=== PATIENT | male | born 1980 | race Caucasian/White ===

== ENCOUNTER 2025-05-24 08:54 | Emergency (ER) | payer MEDICAID, SELFPAY ==
--- NOTE | 2025-05-24 09:00 | PC.NURSE ---
DR CHAVARRIA AT BEDSIDE
[2025-05-24 09:04] VITALS: BP 120/87; PULSE 68; RESP 14; TEMP 36.5; O2SAT 97; BMI 28.4
--- NOTE | 2025-05-24 09:06 | HMH.EDGENADL ---
Discharge Plan Disposition Patient Disposition: Home, Self-Care Condition: Good Prescriptions Prescriptions: New amoxicillin-pot clavulanate 875-125 mg tablet 1 tab PO BID 7 Days Qty: 14 0RF Referrals Follow up/Referrals: Provider,Referral, [Primary Care Provider, Medical] - See instructions Activity Restrictions/Add. Instructions Additional Instructions/Restrictions: Keep the wound clean by using gentle soap and water. Do not scrub as this can make the sutures pop out. Sutures are absorbable and will dissolve on their own over time. If you develop any signs of infection, such as redness to the area, swelling, pus draining from the wound or fever, return to the emergency department for evaluation. You are being prescribed a 7-day course of Augmentin to help prevent infection. Take this as prescribed. The small laceration to the right cheek should heal well on its own. Keep this wound clean as well. You can take Tylenol and ibuprofen to help with pain. Clinical Impressions Clinical Impression: Dog bite of face, Laceration of lip, Laceration of cheek, right Instructions Patient Instructions: DI for Laceration Repair Print Language Print Language: Northern Irish Discharge ED Provider: Sohan Garber General Adult HPI General Chief complaint: Wound/Laceration Stated complaint: Dog bite 05/24 0800 Time Seen by Provider: 05/24/25 08:58 Mode of Arrival: Ambulatory Source of Information: Patient Limitations: No Limitations History of Present Illness HPI narrative: Rohit Tejeda is a 44y male with no significant past medical history who presents to the emergency department for complaints of a dog bite to his face. Patient states that this morning, he woke up and his dog was sleeping in bed with him and he believes that he startled him as his face was next to his dog's face. He states that the dog then snapped at his face 1 time and cut him on the cheek and lip with his teeth. Patient states that the cut to his lip was on the outside and does not believe it goes all the way through. He states that this was a one-time event. He states that the dog's vaccines are up-to-date. Patient states that his tetanus shot is up-to-date within the last 2 years. He has no other complaints or concerns at this time. Related Data Previous Rx's ?Medication ?Instructions ?Recorded amoxicillin 875 mg-potassium 1 tab PO BID 7 days #14 tabs 05/24/25 clavulanate 125 mg tablet Allergies Allergy/AdvReac Type Severity Reaction Status Date / Time No Known Allergies Allergy Verified 05/24/25 09:16 [facility] Disclaimer: The information contained in this section may have been updated after the patient was seen, as this information can be updated by other users. Social History Smoking Status: Never smoker alcohol intake: never current occupational status: employed Travel in the last 8 weeks?: None ROS Obtained: Yes Systems reviewed as appropriate & no additional complaints except as documented Physical Exam General General appearance: alert and in no apparent distress Head Head exam: atraumatic Expanded Head Exam Head image:  1. Small, well-approximated laceration over the right cheek Eye Eye exam: Present normal appearance ENT ENT exam: Present normal external ear exam and other Expanded ENT Exam Nose/Mouth Image:  1. 2 cm laceration to the right lip that crosses the vermilion border but approximates well and does not track into the oral cavity Neck Neck exam: Present full ROM Chest Chest inspection: Present symmetric chest wall rise Respiratory Respiratory exam: Present normal lung sounds bilaterally; Absent respiratory distress Cardiovascular Cardiovascular exam: Present regular rate and normal rhythm Abdominal Exam Abdominal exam: Present soft; Absent tenderness or guarding exam: Present deferred Extremities Exam Extremities exam: Present normal inspection Back Exam Back exam: Present normal inspection Neurological Exam Neurological exam: Present alert and oriented X3 Psychiatric Psychiatric exam: Present normal affect Skin Skin exam: Present warm and dry Medical Decision Making Medical Records Screening: Per USPSTF and CDC recommendations, given the prevalence of disease in our region, it is our hospital?s policy to screen for HIV and viral Hepatitis for all patients aged 18 and over and those with ongoing risk factors. Melvin Inquiry Pt receiving controlled substance: No Vital Signs: 05/24/25 09:04 05/24/25 09:18 05/24/25 10:02 Temperature 97.7 F 98.4 F Temperature Source Oral Oral Pulse Rate 76 68 Pulse Rate [Left] 68 Respiratory Rate 14 14 Blood Pressure 112/61 112/78 Blood Pressure [Right Arm] 120/87 Blood Pressure Mean [Right Arm] 98 Blood Pressure Source Automatic Cuff Blood Pressure Source [Right Arm] Automatic Cuff Blood Pressure Position Sitting 02 Sat by Pulse Oximetry 97 74 L Oxygen Delivery Method Room Air Room Air Orders (Tests/Meds): ED MEDICATIONS Discontinued Medications Generic Name Dose Route Start Last Admin Trade Name Jeannine PRN Reason Stop Dose Admin Amoxicillin/Clavulanate Potassium 1 each 05/24/25 09:02 05/24/25 09:18 Amoxicillin/Clavulanate Potassium 875/125mg Tablet PO 05/24/25 09:03 1 each ONCE ONE Administration Cocaine HCl 1 ml 05/24/25 09:02 05/24/25 09:17 Cocaine 4% Topical Soln 4ml Bottle TP 05/24/25 09:03 1 ml ONCE ONE Administration Epinephrine HCl 1 mg 05/24/25 09:02 05/24/25 09:17 Epinephrine 1 Mg/Ml Ampul TP 05/24/25 09:03 1 mg ONCE ONE Administration Lidocaine HCl 1 ml 05/24/25 09:02 05/24/25 09:18 Lidocaine 2% Urojet 10ml TP 05/24/25 09:03 1 ml ONCE ONE Administration Medical Decision Narrative: Rohit Tejeda is a 44y male with no significant past medical history who presents to the emergency department for complaints of a dog bite to his face. Patient states that this morning, he woke up and his dog was sleeping in bed with him and he believes that he startled him as his face was next to his dog's face. He states that the dog then snapped at his face 1 time and cut him on the cheek and lip with his teeth. Patient states that the cut to his lip was on the outside and does not believe it goes all the way through. He states that this was a one-time event. He states that the dog's vaccines are up-to-date. Patient states that his tetanus shot is up-to-date within the last 2 years. He has no other complaints or concerns at this time. On arrival, patient is hemodynamically stable, no acute respiratory distress, breathing carefully on room air, GCS 15. He has a 2 cm laceration over the right lower lip involving the vermilion border but does not appear to involve the oral cavity. He has a small laceration over the right cheek that is very superficial and approximates well. No other injuries are noted. Patient notes that his dog is up-to-date on vaccines, so no rabies prophylaxis is indicated at this time and no tetanus shot is indicated as patient's tetanus is currently up-to-date. Will give patient a dose of Augmentin here and plan for 7-day course on discharge. Patient was given topical lidocaine and lip laceration was repaired using 5-0 fast-absorbing sutures with good approximation of the lip and vermilion border. See procedure note for details. Patient tolerated this well. Patient was given instructions to follow-up if there is any evidence of infection and to take Tylenol and ibuprofen to help with pain. All questions were answered. He demonstrated understanding and was in agreement this plan. He remained hemodynamically stable throughout his entire ED visit and was appropriate for discharge at this time. Procedures Laceration Laceration 1: Site: lip Side (If applicable): right Size (cm): 2 Description: linear Depth: simple, single layer Local Anesthetic: other anesthetic (Topical lidocaine) Pre-repair: irrigated extensively Skin layer closed with: other (Fast gut) Size (cm): 5-0 Number of sutures: 2 Technique: simple, interrupted Critical Care Critical Care Time Critical Care Time: No
[2025-05-24] MEDS: COCAINE 4% TOPICAL SOLN 4ML BOTTLE 1 ML TP (09:17)
[2025-05-24 09:18] VITALS: BP 112/61; PULSE 76; O2SAT 97
[2025-05-24] MEDS: LIDOCAINE 2% UROJET 10ML TP (09:18)
[2025-05-24] MEDS: AMOXICILLIN/CLAVULANATE POTASSIUM 875/125MG TABLET 1 EACH PO (09:18)
--- OUTSIDE RECORDS SUMMARY | 2025-05-24 09:34 | XMS_ITS | Clinical Summary ---
Author Organization Healthcare Address [address] [place] [address] Care Team Providers Care Office Technologist Name Role Phone Pcp, No Primary Care Provider Unavailabl e Allergies No known active allergies Medications EPINEPHrine (EpiPen 2-Girish) 0.3 MG/0.3ML injection syringe Inject 0.3 mL (0.3 mg total) as directed if needed for anaphylaxis (allergic reation). Inject into upper leg. Call 911 after use. 1 each 3 Active Active Problems No known active problems Family History Medical History Relation Name Comments Hypertension Father Hypertension Mother Uterine cancer Mother Relation Name Status Comments Father Mother Social History Tobacco Use Types Packs/Day Years Used Date Smoking Tobacco: Never Alcohol Use Standard Drinks/Week Comments Yes 0 (1 standard drink = 0.6 oz pure alcohol) Alcoholic Drinks/day: Consumes alcohol occasionally Sex and Gender Information Value Date Recorded Sex Assigned at Not on file Legal Sex Male 7:45 PM EDT Gender Identity Not on file Sexual Orientation Not on file Last Filed Vital Signs Vital Sign Reading Time Taken Comments Blood Pressure 119/85 11/07/2022 2:14 PM EST Pulse 85 11/07/2022 2:14 PM EST Temperature 36.7 C (98 F) 11/07/2022 10:07 AM EST Respiratory Rate 18 11/07/2022 2:14 PM EST Oxygen Saturation 98% 11/07/2022 2:14 PM EST Inhaled Oxygen Concentration - - Weight 107 kg (235 lb) 11/07/2022 10:07 AM EST Height 193 cm (6' 4 ) 11/07/2022 10:07 AM EST Body Mass Index 28.61 11/07/2022 10:07 AM EST Plan of Treatment Health Maintenance Due Date Last Done Comments [facility]-Depression Screening 1979 [facility]-Infant/Child/Adol SDOH Screenings 1979 [facility]-Obesity Intervention 1985 HPV Vaccines (1 - Male 3-dos e series) 1994 [facility]- SDOH Screenings 1997 [facility]-Adult SDOH Screenings 1997 [facility]-DTaP,Tdap,and Td Vaccine s (1 - Tdap) 1998 [facility]-Hepatitis B Vaccines (2 of 3 - 19+ 3-dose series) 01/10/2005 12/13/2004 [id number] Vaccine (1 - season) 2024 CT Colonography 2024 Colonoscopy 2024 FIT-DNA 2024 FIT 2024 FOBT 2024 Sigmoidoscopy 2024 [facility]-Colorectal Cancer Screening 2024 [facility]-Influenza Vaccine (#1) 2025 [facility]-Zoster Vaccines (1 of 2) 2029 [facility]-HIV Screening Completed 06/09/2022 [facility]-Hepatitis C Screening Completed 2021, 06/28/2021 [facility]-HIB Vaccines Aged Out No longer e ligible based on patient's age to complete this topic [facility]-Hepatitis A Vaccines Aged Out No longer eligible based on patient's age to complete this topic [facility]-IPV Vaccines Aged Out No longer e ligible based on patient's age to complete this topic [facility]-Pneumococcal Vaccine: Pediatrics (0 to 5 Years) and At-Risk Patients (6 to 49 Years) Aged Out No longer eligible b ased on patient's age to complete this topic [facility]-Rotavirus Vaccines Aged Out No lo nger eligible based on patient's age to complete this topic Procedures Procedure Name Priority Date/Time Associated Diagnosis Comments HEPATITIS C ANTIBODY - ED W/REFLEX TO HCV QUANT PCR STAT 06/09/2022 10:19 PM EDT HIV 1/2 ANTIBODY/ANTIGEN SCREEN WITH REFLEX TO HIV I/II DIFFERENTIATION STAT 06/09/2022 10:03 PM EDT from Last 3 Months or Most Recently Relevant to Health Maintenance Results * Hepatitis C Antibody - ED (06/09/2022 10:19 PM EDT) Hepatitis C Antibody Negative Negative 06/10/2022 12:14 AM EDT [facility] Blood Venous blood specimen / Unknown Venipuncture / Unknown 06/09/2022 10:19 PM EDT 06/09/2022 10:53 PM EDT us Gage Yates MD LAB BLOOD ORDERABLES Final Resu lt Performing Organization Address City/[facility] Co de Phone Number [facility] [address] [place] [address] * HIV 1 & 2 Antibody/Antigen Screen (06/09/2022 10:03 PM EDT) HIV 1 & 2 Antibody/Anti gen Screen Nonreactive Nonreactive 06/10/2022 12:13 AM EDT [facility]ALTH[facility]ARE [facility] Blood Venous blood specimen / Unknown Venipuncture / Unknown 06/09/2022 10:03 PM EDT 06/09/2022 10:53 PM EDT us Gage Yates MD LAB BLOOD ORDERABLES Final Resu lt [facility] [address] [place] [address] from Last 3 Months or Most Recently Relevant to Health Maintenance Care Teams Office Technologist Relationship Specialty Start Date End Date Pcp, Patricia [address] [place] [address] PCP - General Family Medicine 06/09/22
--- OUTSIDE RECORDS SUMMARY | 2025-05-24 09:34 | XMS_ITS | Clinical Summary ---
Author Organization [facility] Address [address] [place] [address] Care Team Providers Care Resawyer Name Role Phone Dagoberto Mcmullen MD Primary Care Provider [phone] Allergies No known active allergies Medications EPINEPHrine (EPIPEN) 0.3 MG/0.3ML solution auto-injector injection 0.3 mL. 11/07/2022 Active famotidine (Pepcid) 40 MG tablet Take 1 tablet by mouth Daily. 30 tablet 3 09/16/2023 Active Linzess 145 MCG capsule capsule 02/11/2024 Act brian metoclopramide (Reglan) 10 MG tabletIndicatio ns:Gastroparesi s 1 PO QHS 30 tablet 2 02/19/2024 Active omeprazole (priLOSEC) 40 MG capsuleIndicati ons:Dyspepsia Take 1 capsule by mouth 2 (Two) Times a Day. 60 capsule 5 02/19/2024 Active Active Problems Problem Noted Date Diagnosed Date GERD (gastroesophageal reflux disease) Generalized anxiety disorder 11/09/2020 Resolved Problems Problem Noted Date Diagnosed Date Resolved Date Upper respiratory tract infection 12/14/2022 02/19/2024 Immunizations Immunization Administration Dates Next Due Hepatitis B Adult/Adolescent IM 12/13/2004 Family History Medical History Relation Name Comments Arthritis Father Colon polyps Father Hypertension Father Hypertension Mother Relation Name Status Comments Father Alive Mother Alive Social History Tobacco Use Types Packs/Day Years Used Date Smoking Tobacco: Never Smokeless Tobacco: Never Tobacco Cessation:Counseling Given: Not Answered Alcohol Use Standard Drinks/Week Comments Yes 0 (1 standard drink = 0.6 oz pur e alcohol) couple a night PHQ-2 Answer Date Recorded Retired PHQ-9: Brief Depression Severity Measure Score 0 02/18/2023 Abuse Screen Answer Date Recorded Unsafe at Home or Work/School Not on file Feels Threatened by Someone? Not on file 07/2023 Does Anyone Keep You from Co ntacting Others or Doint Things Outside the Home? Not on file 08/12/2023 Physical Sign of Abuse Present Not on file 1 Housing Stability Answer Date Recorded Current Living Arrangements Not on file 07/2023 Potentially Unsafe Housing Conditions Not on gareth e 08/12/2023 Family and Community Support Answer Imguel e Recorded Help with Day-to-Day Activities Not on file 08/12/2023 Lonely or Isolated Not on file 08/12/2023 Employment Answer Date Recorded Do you want help finding or keeping work or a arin b? Not on file 08/12/2023 Disabilities Answer Date Recorded Concentrating, Remembering, or Making Decisions Difficulty Not on file 08/12/2023 Doing Errands Independently Difficulty Not on fi le 08/12/2023 Education Answer Date Recorded Help with school or training? 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, construction Not on file Not on file No t on file Last Filed Vital Signs Vital Sign Reading Time Taken Comments Blood Pressure 124/76 02/19/2024 12:12 PM EDT Pulse 78 02/19/2024 12:12 PM EDT Temperature 36.5 C (97.7 F) 02/19/2024 12:12 PM EDT Respiratory Rate 16 02/19/2024 12:12 PM EDT Oxygen Saturation 93% 02/19/2024 12:12 PM EDT Inhaled Oxygen Concentration - - Weight 114 kg (251 lb) 02/19/2024 12:12 PM EDT Height 195.6 cm (6' 5 ) 02/19/2024 12:12 PM EDT Body Mass Index 29.76 02/19/2024 12:12 PM EDT Plan of Treatment Health Maintenance Due Date Last Done Comments TDAP/TD VACCINES (1 - Tdap) 1998 ANNUAL PHYSICAL 11/13/2020 11/13/2019 COVID-19 Vaccine ( - 2023-2 5 season) 2024 COLOGUARD 2024 COLON CANCER SCREENING 5 YEA R SIGMOIDOSCOPY 2024 COLONOSCOPY 2024 [address]AL CANCER SCREENING [address] COLONOGRAPHY 2024 FECAL OCCULT BLOOD TEST 2024 FIT Testing (1 year) 2024 INFLUENZA VACCINE 08/04/2025 HEPATITIS C SCREENING Completed 06/09/2022 , 06/28/2021 Pneumococcal Vaccine 0-49 Aged Out No longer eligible based on patient's age to complete this topic Procedures Procedure Name Priority Date/Time Associated Diagnosis Comments HEPATITIS C ANTIBODY Routine 06/28/2021 12:40 PM EDT Encounter for hepatitis C screening test for low risk patient from Last 3 Months or Most Recently Relevant to Health Maintenance Results * Hepatitis C Antibody (06/28/2021 12:40 PM EDT) Hep C Virus Ab <0.1 0.0 - 0.9 s/co ratio [facility] Comment: Negative: < 0.8 Indeterminate: 0.8 - 0.9 Positive: > 0.9 The CDC recommends that a positive HCV antibody result be followed up with a HCV Nucleic Acid Amplification test (394404). Blood 06/28/2021 12:4 0 PM EDT 06/28/2021 Narrative [facility] ([facility]) - 06/29/2021 10:36 AM EDT Performed at: 01 - [address] [id number] [employer] Repairer: Victor Manuel Martin PhD, Phone: [phone] Patient Fasting: N us Dagoberto Mcmullen MD LAB BLOOD ORDERABLES Final Resu lt [facility] ([facility]) [address] [place] [address], [place] [phone] [facility] [address] [place] [address], from Last 3 Months or Most Recently Relevant to Health Maintenance Care Teams Resawyer Relationship Specialty Start Date End Date Dagoberto Mcmullen MD [address] [place] [address] PCP - General Family Medicine 11/13/19
--- OUTSIDE RECORDS SUMMARY | 2025-05-24 09:34 | XMS_ITS | Data Portability ---
Author Organization [place] - [place] - [facility] BETY ADMIN Address [address] [place] [id number] Assessment Encounter Date Assessment Date Assessment LastModified by Organization Details LastModified Time 07/03/2023 07/03/2023 42-year-old male with frequent bothersome abdominal bloating and history of recurrent H. pylori infection. He also reports a family history of colon polyps in his father at unknown age. -EGD and colonoscopy scheduled -Start Simethicone after meals and at bedtime -Will obtain labs and most recent H. pylori breath test result from his PCP. [email or web address] Not available 07/03/2023 09:48:22 09/19/2023 09/19/2023 43-year-old male with frequent bothersome abdominal bloating, heartburn, and history of recurrent H. pylori infection. He also reports a family history of colon polyps in his father at unknown age. -EGD and colonoscopy with no abnormal gross endoscopic findings on 08/08/23. Path showed mild chronic gastritis, normal duodenal biopsy. -Continue Simethicone after meals and at bedtime. Low FODMAP diet counseled. -Stop Omeprazole. Start Pantoprazole 40 mg p.o. daily. Patient instructed to eat 30-60 minutes after taking the medication on an empty stomach. -Will obtain GBUS and HIDA scan for evaluation of upper abdominal pain/dyspepsia [email or web address] Not available 09/20/2023 10:43:29 12/24/2023 12/24/2023 43-year-old male with frequent bothersome post-prandial abdominal bloating, heartburn, and history of recurrent H. pylori infection. 1) Functional dyspepsia: EGD and colonoscopy with no abnormal gross endoscopic findings on 08/08/23. Path showed mild chronic gastritis, normal duodenal biopsy. GBUS and HIDA scan are normal. -Simethicone did not improve his symptoms. Low FODMAP diet was previously counseled. -Will obtain a GES to evaluate for delayed gastric emptying. -Will start Buspirone 10 mg p.o. TID to try to improve gastric acommodation. He was instructed to hold the medication for 24 hours before his gastric emptying scan. 2) Heartburn: Start Dexlansoprazole 60 mg p.o. once daily. He was instructed that he will need to take the medication daily for it to be effective. f/u 6 weeks Not available 12/24/2023 16:16:42 02/11/2024 02/11/2024 43-year-old male with frequent bothersome post-prandial abdominal bloating, heartburn, and history of recurrent H. pylori infection. Thus far, EGD/colonoscopy/GB US/HIDA/Gastric emptying study have been performed with no source for his symptoms. He has failed treatment with Buspar and simethicone for functional dyspepsia. Multiple PPI's have failed to improve his symptoms. Dietary changes have provided minimal relief. -At this point, he would like a referral to a general surgeon to discuss possible cholecystectomy given the nature of his symptoms. He had a normal HIDA and GBUS, but does have symptoms of possible biliary colick and has some tenderness to palpation of the RUQ. Will refer to surgery for recommendations. -I would like to give him a trial on a stronger laxative to see if his bloating and discomfort may improve. Prior use of miralax plus citrucel were ineffective. Will start Linzess 145 mcg p.o. once daily. Samples were provided. -Most recent EGD with gastric biopsy was negative for H. pylori. He has been treated for this multiple times in the past. [email or web address] Not available 02/11/2024 22:07:02 03/03/2025 03/03/2025 44-year-old male with frequent post-prandial abdominal bloating, heartburn, and history of recurrent H. pylori infection. EGD/colonoscopy/GB US/HIDA/Gastric emptying study have been performed with no source for his symptoms identified. IBS is suspected. Treatment with Buspar, simethicone, and Linzess have failed to improve his symptoms. Dietary changes have provided minimal relief. He has experienced refractory GERD despite trials of multiple daily PPIs. . Not available 03/03/2025 21:52:28 Plan of Treatment Reminders Order Date Submit Date Provider Last Modified By Organization Details Last Modified Time Details Appointments None recorded. Lab None recorded. Referral None recorded. Procedures None recorded. Surgeries None recorded. Imaging NM, gastric emptying scan 2023 024 [email or web address] [facility] (Centralized Scheduling), [address], [place], [address], 4 10:22:42 [place], gallbladder [address] (Centralized Scheduling), [address], [place], [address], 3 09:18:13 NM, hepatobilia ry scan, w/ CCK [address] (Centralized Scheduling), [address], [place], [address], 4 16:31:40 Medication Orders Voquezna 10 mg tablet 2024 025 [facility]/Pharmacy #[id number], [address] [place], [address], 5 13:48:39 Linzess 145 mcg capsule 2023 024 [facility]/Pharmacy #2332, [address] [place], [address], 4 15:41:43 buspirone 10 mg tablet 2023 024 [facility]/Pharmacy #2332, [address] [place], [address], 4 15:47:35 dexlansopra zole 60 mg capsule,bip hase delayed release 2023 024 [email or web address] [facility]/Pharmacy #2332, [address] [place], [address], 4 16:11:27 pantoprazol e 40 mg tablet,cecilio yed release 2022 023 [email or web address] [facility]/Pharmacy #2332, [address] [place], [address], 5 14:06:57 simethicone 125 mg chewable tablet 2022 023 ABIGAIL [facility]/Pharmacy #2332, [address] [place], [address], 3 09:42:24 Patient TargetsNo targets recorded. Patient InstructionsNo instructions recorded. Reason for Referral None Reported. Results Created Date Observation Date Name Description Value Unit Range Abnormal Flag Note LastModifiedBy Organization Detail LastModifiedTime 10/16/20 23 10/16/2023 , peng payne [facility] [address] [place] [address] Phone: Fax: Name: ROHIT DUTTON Exam Date: 2022 : 1979 Age 43 Gender : M Access ion: [id number] Physic fannie: MELECIO MENARD [place] Fac[place] HSV: Outpat ient Exam: GALL BLADDE R ULTRAS OUND RIGHT UPPER QUADRA NT ULTRAS OUND: Histor y: Abdomi nal pain Techni que: Ultras ound images of right upper quadra nt were obtain ed. Findin gs: Limite d images of the pancre as are obscur ed by bowel gas. The liver parenc hyma is normal echoge nicity . The gallbl adder is well-v isuali zed and the wall appear s normal . There are no gallst ones. The common duct is normal . Limite d images of right kidney are unrema rkable . IMPRES MOIZ: Normal right upper quadra nt ultras ound. Images review ed, interp reted, and dictat ed by Teresita Corley MD. Transc ribed by Peng barroso PA-C Dictat ed By: Teresita Simpson Transc ribed By: Teresita Corley Transc ribed On: 2022 10:20 AM Electr onical ly signed by: Teresita Simpson 2022 Thank you for referr ing ROHIT DUTTON to [facility]. Legall y authen ticate d by BENJAMIN BUSTAMANTE 2022-11 10:20: 03 CC'ed Logic: Orderi ng Provid er: YURIDIA GRANT Attend ing Provid er: YURIDIA GRANT Admitt ing Provid er: YURIDIA GRANT [email or web address] [facility] [address] [place], [address], 11/14/2023 15:09:18 12/03/19 24 12/03/2023 hepat obili radha imag pharm [facility] [address] [place] [address] Phone: Fax: Name: ROHIT DUTTON Exam Date: 024 : 1979 Age 43 Gender : M Access ion: [id number] Physic fannie: MELECIO MENARD [place] [place] HSV: Outpat ient Exam: HEPATO BILIAR Y IMAG PHARM NUCLEA R MEDICI NE HIDA SCAN Histor y: Right upper quadra nt pain Techni que: The patien t was inject ed with 5.28 mCi of techne tium 99m mebrof enin. Imagin g was obtain ed for 60 minute s. The patien t was inject ed with 2.2 mcg Kineva c IV. Additi onal imagin g was obtain ed for 32 minute s. Findin gs: There is normal uptake of radiot racer within the liver. The gallbl adder is visual ized at 10 minute s. There is small bowel activi ty seen at 15 minute s. Follow ing Kineva c inject ion ejecti on fracti on was calcul ated at 61%. Impres moiz: Normal HIDA scan with normal ejecti on fracti on. Images review ed, interp reted, and dictat ed by Kvaita Reid D.O. Transc ribed by Peng barroso PA-C Dictat ed By: KAVITA REID Transc ribed By: Kavita Reid Transc ribed On: 11:09 AM Electr onical ly signed by: KAVITA REID Thank you for referr ing ROHIT DUTTON to [facility]. Legall y authen ticate d by POPE KAVITA Marks 12-03 11:09: 23 CC'ed Logic: Orderi ng Provid er: YURIDIA GRANT Attend ing Provid er: YURIDIA GRANT Referr ing Provid er: YURIDIA GRANT Admitt ing Provid er: YURIDIA GRANT [email or web address] [facility] [address] [facility], [place], [address], 12/17/2023 15:30:59 02/11/20 24 02/11/2024 NM, gastr ic empty ing scan [facility] [address] [place] [address] Phone: Fax: Name: ROHIT DUTTON Exam Date: 02/11/20 24 : 1979 Age 43 years Gender : M Access ion: [id number] Physic fannie: MELECIO MENARD Facili ty: [facility] Facilfior ty HSV: Outpat ient Exam: GASTRI C EMPTYI NG STUDY Nuclea r medici ne gastri c emptyi ng. HISTOR Y: Epigas tric pain. PROCED URE: The patien t receiv ed a standa rdized meal with 0.522 mCi of Tc sulfur colloi d. Images of the abdome n were obtain ed. The T-1/2 was calcul ated. FINDIN GS: Images over the abdome n are unrema rkable . The T-1/2 is 96 minute s. IMPRES MOIZ: Normal T-1/2. No eviden ce of gastro paresi s or gastri c outlet obstru ction. Films review ed , interp reted and dictat ed by Dr.Pop whelan Transc ribed by Nikolas Russell PA-C. Dictat ed By: KAVITA REID Transc ribed By: Kavita Reid Transc ribed On: 02/11/20 12:57 PM Electr onical ly signed by: KAVITA REID 02/11/20 Thank you for referr ROHIT Alcala to [facility]. Legall y authen ticate d by POPE KAVITA Marks 02-10 12:57: 38 CC'ed Logic: Orderi ng Provid er: YURIDIA GRANT Attend ing Provid er: YURIDIA GRANT Referr ing Provid er: YURIDIA GRANT Admitt ing Provid er: YURIDIA GRANT [email or web address] [facility] [address] [place] [address], [address], 02/11/2024 20:57:02 Result Notes Documentation Provider Name and Address Organization Details Recorded Time Nm, Gastric Emptying Scan : [address] [place] [address] Name: ROHIT TEJEDA Exam Date: 02/11/2024 : 1980 Age 43 years Gender: M Physician: MELECIO MENARD Facility: [facility] Facility HSV: Outpatient Exam: GASTRIC EMPTYING STUDY Nuclear medicine gastric emptying. HISTORY: Epigastric pain. PROCEDURE: The patient received a standardized meal with 0.522 mCi of Tc sulfur colloid. Images of the abdomen were obtained. The T-1/2 was calculated. FINDINGS: Images over the abdomen are unremarkable. The T-1/2 is 96 minutes. IMPRESSION: Normal T-1/2. No evidence of gastroparesis or gastric outlet obstruction. Films reviewed , interpreted and dictated by Transcribed by Nikolas Russell PA-C. Dictated By: KAVITA REID Transcribed By: Kavita Reid Transcribed On: 02/11/2024 12:57 PM Electronically signed by: KAVITA REID 02/11/2024 Thank you for referring ROHIT TEJEDA to [facility]. Legally authenticated by POPE KAVITA Marks 2024-02-11 12:57:38 CC'ed Logic: Ordering Provider: YURIDIA GRANT Attending Provider: YURIDIA GRANT Referring Provider: YURIDIA GRANT Admitting Provider: [address], [place], [place], [address] [place] [address], [place] [facility] [place] 02/11/2024 20:57:02 Problems Name Problem SNOMED Code Status Onset Date Resolution Date Notes Provider Name and Address Organization Details Recorded Time Abdominal bloating 034542517 Active 2022 GARY Cummings[address] Cooper, [place] [address] , [place] - [facility] - [place] 3 09:36:20 Gastroesophag eal reflux disease without esophagitis 962556898 Active 2022 GARY Cummings0 Jessica Cooper, [place] [address] , [place] - [facility] [place] 3 09:45:02 Abdominal pain 92260636 Active 2022 Melecio Menard PA-C [address], [facility] [address] , [place] - [facility] - [place] 3 09:45:43 Chronic idiopathic constipation 50329806 Active 2023 GARY Cummings0 Jessica Cooper, [place] [id number] , [place] - [facility] - [place] 4 15:40:51 Irritable bowel syndrome 66038933 Active [address], [place], [address] , [place] - [facility] & [place] 5 21:57:20 Problem Notes None recorded. Procedures Surgical History Date Name Laterality Status Provider Name and Address Organization Details Recorded Time esophagogastroduodenoscopy completed Pia Hawk [place] - [facility] & [place] 3 09:09:39 Imaging Results None recorded. Procedure Notes None recorded. Medical Equipment None Reported. Allergies No known drug allergies Medications Name Sig Start Date Stop Date Status Note LastModified by Organization Details LastModified Time Miralax 17 gram oral powder packet Take 5 packets 3 times a day by oral route. 2022 active Not Available Not Available Not Avai lable famotidine 20 mg tablet Take 1 tablet twice a day by oral route. active Not Available Not Available No t Available pantoprazole 40 mg tablet,delay ed release Take 1 tablet by mouth twice daily on an empty stomach, 30-60 minutes before a meal. 30 days 03/03 completed Not Available Not Available Not Available buspirone 10 mg tablet Take 1 tablet 3 times a day by oral route as needed for 30 days. 2023 active Not Available Not Available Not Avai lable omeprazole 20 mg capsule,cecilio yed release TAKE 1 CAPSULE BY MOUTH EVERY DAY active Not Available Not Available No t Available simethicone 125 mg chewable tablet Chew 1 tablet four times daily, after meals and at bedtime, 30 days 2022 active Not Available Not Available Not Avai lable fiber active Not Available Not Availa ble Not Available dexlansopraz ole 60 mg capsule,biph ase delayed release Take 1 capsule every day by oral route for 30 days. 2023 active Not Available Not Available Not Avai lable Linzess 145 mcg capsule Take 1 capsule by mouth on an empty stomach, 30 minutes before food or coffee, 30 days 2023 active Not Available Not Available Not Avai lable Linzess 72 mcg capsule Take 1 capsule every day by oral route for 30 days, for constipa tion. 03/03 completed Not Available Not Available Not Available Voquezna 10 mg tablet TAKE 1 TABLET BY MOUTH EVERY DAY FOR 30 DAYS active Not Available Not Available No t Available Vitals Date Recorded Body height Body mass index (BMI) Body weight Heart rate Systolic And Diastolic Provider Name and Address Organization Details Last Updated DateTime 12/24/2023 195.58 cm 17.9 kg/m2 16406.09 g 82 /min 128/75 mm[Hg] [facility] [place] 12/24/2023 15:19:45 Date Recorded Body height Body mass index (BMI) Body weight Body temperature Oxygen saturation Oxygen saturation in Arterial blood by Pulse oximetry Heart rate Heart rate Systolic And Diastolic Provider Name and Address Organization Details Last Updated DateTime 4 195.58 cm 30.1 kg/m2 278022. 67 g 98.4 [degF] 98 % 98 % 85 /min 82 /min 116/83 mm[Hg] Ashantialden Cristiano [facility] & [place] 4 15:08:06 Date Recorded Body height Body mass index (BMI) Body weight Body temperature Oxygen saturation Oxygen saturation in Arterial blood by Pulse oximetry Heart rate Heart rate Systolic And Diastolic Provider Name and Address Organization Details Last Updated DateTime 5 195.58 cm 29.2 kg/m2 084395. 72 g 97.2 [degF] 96 % 96 % 86 /min 86 /min 130/83 mm[Hg] [facility] [place] 5 14:06:37 Date Recorded Body height Body mass index (BMI) Body weight Body temperature Oxygen saturation Oxygen saturation in Arterial blood by Pulse oximetry Heart rate Heart rate Systolic And Diastolic Provider Name and Address Organization Details Last Updated DateTime 3 195.58 cm 28.6 kg/m2 552261. 4 g 98.4 [degF] 96 % 96 % 76 /min 77 /min 147/84 mm[Hg] [facility] [place] 3 09:09:02 Date Recorded Body height Body mass index (BMI) Body weight Body temperature Oxygen saturation Oxygen saturation in Arterial blood by Pulse oximetry Heart rate Heart rate Systolic And Diastolic Provider Name and Address Organization Details Last Updated DateTime 3 195.58 cm 27.3 kg/m2 105333. 68 g 97.9 [degF] 99 % 99 % 79 /min 76 /min 121/81 mm[Hg] Nalini Quinonez [facility] & [place] 09:08:18 Social History Question Answer Notes LastModified by Organizat ion Details LastModified Time Tobacco Smoking Status Never Smoker Pia simpson, [facility] & [place] 07/03/2023 09:10:00 What Is Your Level Of Caffeine Consumption? Moderate [email or web address] Information not available 07/03/2023 Sex: Unknown Functional Status Question Answer Note LastModified by Organizat ion Details LastModified Time Do you use any illicit or recreational drugs? No [email or web address] Information not available 07/03/2023 Do you or have you ever used any other forms of tobacco or nicotine? No [email or web address] Information not available 07/03/2023 What is your level of alcohol consumption? Occasional [email or web address] Information not available 07/03/2023 Mental Status None recorded. Family History Nothing Reported. Medical History No medical history recorded. Past Encounters Encounter ID Performer Location Encounter Start Date Encounter Closed Date Diagnosis/Indication Diagnosis SNOMED-CT Code Diagnosis ICD10 Code Diagnosis Note [id number] Melecio Menard PA-C [facility] [address] [address] 07/03/2023 08:56:34 07/03/2023 09:43:37 Abdominal bloating 178887052 R14.0 History of Helicobacter pylori infection 5480289996 7383153 Z86.19 Family his tory of polyp of colon 400831916 Z83.71 [id number] Melecio Menard PA-C [facility] [address] [address] 09/19/2023 08:52:20 09/19/2023 09:43:47 Abdominal bloating 141408907 R14.0 History of Helicobacter pylori infection 8566185259 0060312 Z86.19 Family his tory of polyp of colon 744507236 Z83.710 Gastroesop hageal reflux disease without esophagitis 673460970 K21.9 Abdominal pain 21502266 R10.9 [id number] Melecio Menard PA-C [facility] [address] [address] 12/24/2023 15:04:04 12/24/2023 16:06:16 Abdominal bloating 654270841 R14.0 History of Helicobacter pylori infection 8558525348 1050978 Z86.19 Family his tory of polyp of colon 475947825 Z83.710 Gastroesop hageal reflux disease without esophagitis 139460323 K21.9 Abdominal pain 68854343 R10.9 [id number] Melecio Menard PA-C [facility] [address] [address] 02/11/2024 14:29:51 02/11/2024 15:39:31 Abdominal bloating 488190138 R14.0 History of Helicobacter pylori infection 6941545088 2930970 Z86.19 Family his tory of polyp of colon 624901126 Z83.710 Gastroesop hageal reflux disease without esophagitis 434125237 K21.9 Abdominal pain 36398329 R10.9 Chronic id iopathic constipation 32024437 K59.04 [id number] Melecio Menard PA-C [facility] [address] [address] 03/03/2025 12:59:16 03/03/2025 13:50:41 Abdominal bloating 644488392 R14.0 -I have recommende d he stop the fibercon gummies since they contain sorbitol, which may worsen bloating.- I have recommende d citrucel once daily alternativ crystal. History of Helicobacter pylori infection 5421300840 3786395 Z86.19 -Most recent EGD with gastric biopsy was negative for H. pylori. He has been treated for this multiple times in the past. Family his tory of polyp of colon 602377483 Z83.710 Last colonoscop y was 08/2023 with 10 year repeat. Consider5 year repeat if polyps were in a first degree relative. Gastroesop hageal reflux disease without esophagitis 476004560 K21.9 -Will stop Omeprazole , start Voquezna 10 mg p.o. once daily. Irritable bowel syndrome 68543520 K58.9 Health Concerns Section Related Observation LastModified by Organization Detai ls LastModified Time None Recorded Concern Status LastModified by Organization Details LastModified Time None Recorded Advance Directives Directive None Recorded Payers Insurance Date Sequence Insurance Name Policy Number Policy Perdomo Covered Member ID Perdomo Member ID Guarantor Name 03/03/2025 1 [place] [id number] Rohit Tejeda [id number] 03/03/2025 1 [employer] (MEDICARE REPLACEMENT/ ADVANTAGE - PPO) Rohit Tejeda [id number] Notes Date Note Type Note Provider Name and Address Organization Details Recorded Time 07/03/2023 text/html Mr. Tejeda is a very pleasant 42-year-old male who was referred by Dr. Mcmullen for evaluation of recurrent H. pylori infection. No lab or office notes were sent with the referral. The patient's primary complaint today is frequent abdominal bloating associated with fatigue. He reports symptoms have been present for approximately 1 year. He states he underwent EGD in [place] last year and was told he had an H. pylori infection. He states this was treated, but breath testing did not show successful eradication and he was retreated. He states he has been treated multiple times for this. He is unsure if his most recent H. pylori breath test was negative or not. He reports regular bowel habits and denies melena or hematochezia. He reports a history of acid reflux and is taking Omeprazole 20 mg p.o. daily. He denies frequent heartburn. Melecio Menard PA-C [address] [facility], [place], [address], [facility] - [place] & [place] 07/03/2023 09:49:20 09/19/2023 text/html PREVIOUS (): Mr. Tejeda is a very pleasant 42-year-old male who was referred by Dr. Mcmullen for evaluation of recurrent H. pylori infection. No lab or office notes were sent with the referral. The patient's primary complaint today is frequent abdominal bloating associated with fatigue. He reports symptoms have been present for approximately 1 year. He states he underwent EGD in [place] last year and was told he had an H. pylori infection. He states this was treated, but breath testing did not show successful eradication and he was retreated. He states he has been treated multiple times for this. He is unsure if his most recent H. pylori breath test was negative or not. He reports regular bowel habits and denies melena or hematochezia. He reports a history of acid reflux and is taking Omeprazole 20 mg p.o. daily. He denies frequent heartburn. CURRENT (09/20/23): Mr. Tejeda presents to the office today for procedure follow-up. He underwent EGD and colonoscopy on 08/08/23 in evaluation of acid reflux and abdominal bloating. Gross endoscopic findings were unremarkable. Gastric biopsies showed mild chronic gastritis. Duodenal biopsies were unremarkable. He is taking Omeprazole once daily, does not typically eat within the recommended time frame after medication adminstration. He has continued to experience frequent bloating. He has not yet tried the simethicone that was previously prescribed. He reports regular, soft bowel movements. Additionally, he complains of intermittent post-prandial upper abdominal pain and excessive belching. Melecio Menard PA-C [address] [facility], [place], [address], [facility] - [place] & [place] 09/20/2023 10:44:04 12/24/2023 text/html PREVIOUS (): Mr. Tejeda is a very pleasant 42-year-old male who was referred by Dr. Mcmullen for evaluation of recurrent H. pylori infection. No lab or office notes were sent with the referral. The patient's primary complaint today is frequent abdominal bloating associated with fatigue. He reports symptoms have been present for approximately 1 year. He states he underwent EGD in [place] last year and was told he had an H. pylori infection. He states this was treated, but breath testing did not show successful eradication and he was retreated. He states he has been treated multiple times for this. He is unsure if his most recent H. pylori breath test was negative or not. He reports regular bowel habits and denies melena or hematochezia. He reports a history of acid reflux and is taking Omeprazole 20 mg p.o. daily. He denies frequent heartburn. PREVIOUS (09/20/23): Mr. Tejeda presents to the office today for procedure follow-up. He underwent EGD and colonoscopy on 08/08/23 in evaluation of acid reflux and abdominal bloating. Gross endoscopic findings were unremarkable. Gastric biopsies showed mild chronic gastritis. Duodenal biopsies were unremarkable. He is taking Omeprazole once daily, does not typically eat within the recommended time frame after medication adminstration. He has continued to experience frequent bloating. He has not yet tried the simethicone that was previously prescribed. He reports regular, soft bowel movements. Additionally, he complains of intermittent post-prandial upper abdominal pain and excessive belching. CURRENT (12/24/23): Mr. Tejeda returns to the office today for follow-up regarding acid reflux, bloating, and post-prandial epigastric pain and belching. Recent gallbladder ultrasound and HIDA scans were unremarkable. He continues to experience intermittent feelings of fullness after small meals with excessive gas and belching. Simethicone did not previously improve his symptoms. He reports intermittent heartburn with spicy foods and tomato based foods. He states that the pantoprazole I previously prescribed was not covered. He is not currently taking any PPI or antacids. Melecio Menard PA-C [id number] [facility], [place], [id number], [facility] [place] - [place] & [place] 12/24/2023 16:16:56 02/11/2024 text/html PREVIOUS (): Mr. Tejeda is a very pleasant 42-year-old male who was referred by Dr. Mcmullen for evaluation of recurrent H. pylori infection. No lab or office notes were sent with the referral. The patient's primary complaint today is frequent abdominal bloating associated with fatigue. He reports symptoms have been present for approximately 1 year. He states he underwent EGD in [place] last year and was told he had an H. pylori infection. He states this was treated, but breath testing did not show successful eradication and he was retreated. He states he has been treated multiple times for this. He is unsure if his most recent H. pylori breath test was negative or not. He reports regular bowel habits and denies melena or hematochezia. He reports a history of acid reflux and is taking Omeprazole 20 mg p.o. daily. He denies frequent heartburn. PREVIOUS (09/20/23): Mr. Tejeda presents to the office today for procedure follow-up. He underwent EGD and colonoscopy on 08/08/23 in evaluation of acid reflux and abdominal bloating. Gross endoscopic findings were unremarkable. Gastric biopsies showed mild chronic gastritis. Duodenal biopsies were unremarkable. He is taking Omeprazole once daily, does not typically eat within the recommended time frame after medication adminstration. He has continued to experience frequent bloating. He has not yet tried the simethicone that was previously prescribed. He reports regular, soft bowel movements. Additionally, he complains of intermittent post-prandial upper abdominal pain and excessive belching. PREVIOUS (12/24/23): Mr. Tejeda returns to the office today for follow-up regarding acid reflux, bloating, and post-prandial epigastric pain and belching. Recent gallbladder ultrasound and HIDA scans were unremarkable. He continues to experience intermittent feelings of fullness after small meals with excessive gas and belching. Simethicone did not previously improve his symptoms. He reports intermittent heartburn with spicy foods and tomato based foods. He states that the pantoprazole I previously prescribed was not covered. He is not currently taking any PPI or antacids. CURRENT (02/11/24): Mr. Tejeda returns to the office today for follow-up regarding chronic post-prandial abdominal pain and bloating. Recent treatment for functional dyspepsia with Buspar has not improved his symptoms. He was also started on Dexlansoprazole for treatment of heartburn/dyspepsia but also states this was not helpful. He underwent gastric emptying study earlier today that was unremarkable. He is concerned that the issue is his gallbladder despite recent normal US and HIDA scan. He notes some mild inconsistencies with his bowel movements with occasional fecal urgency. Melecio Menard PA-C [id number], [place], [id number], [facility] - [place] & [place] 02/11/2024 22:07:28 03/03/2025 text/html CURRENT (03/03/25 ): Mr. Tejeda returns to the office today for annual follow-up regarding GERD and suspected IBS. He has experienced chronic abdominal bloating. Prior use of laxatives, buspar, and simethicone did not improve his bloating. Gastric empty study, GBUS, and HIDA scan were all WNL. EGD and colonoscopy were previously unremarkable 08/08/2023. Today, he complains of heartburn despite use of Omeprazole. Nexium and Dexlansoprazole have not provided optimal relief of heartburn previously either. He denies constipation or diarrhea currently. Melecio Menard PA-C [id number], [place], [id number], [place] - [facility] - [place] & [place] 03/03/2025 21:57:58
[2025-05-24 10:02] VITALS: BP 112/78; PULSE 68; RESP 14; TEMP 36.9; O2SAT 97
--- NOTE | 2025-05-24 10:04 | PC.NURSE ---
Dog Bite form was filled out and faxed prior to pt DC
== END 2025-05-24 10:08 | disposition home or self-care (01) ==
PROVIDERS: Emergency Provider Student in an Organized Health Care Education/Training Program
DX: S01.411A Laceration without foreign body of right cheek and temporomandibular area, initial encounter (principal); S01.511A Laceration without foreign body of lip, initial encounter; S01.85XA Open bite of other part of head, initial encounter; W54.0XXA Bitten by dog, initial encounter
CPT/HCPCS: 12011; 99283; J0169